=== PATIENT | female | born 1965 | race American Indian/Alaskan Native ===

== ENCOUNTER 2016-11-05 19:11 | Emergency (ER) | payer MEDICAID ==
[~2016-11-05] VITALS: Ht 167.6 cm; Wt 63.6 kg
[~2016-11-05 19:11] MED LIST: FLUO40CA8 PO; PROZAC; [UNRECOGNIZED DRUG - REMARK]
[2016-11-05] MEDS ORDERED: LIDOCAINE HCL 1%/EPI 1:200,000 30 ML VIAL MC ONE (21:00)
[2016-11-05] MEDS ORDERED: CEFTRIAXONE SODIUM 1 G/VIAL IM ONE (23:00)
[2016-11-05 23:48] VITALS: BP 136/87
== END 2016-11-05 23:55 | disposition home or self-care (01) ==
LOC: ER 20:40
DX: L02.414 Cutaneous abscess of left upper limb (principal); L02.413 Cutaneous abscess of right upper limb; F10.20 Alcohol dependence, uncomplicated; F17.210 Nicotine dependence, cigarettes, uncomplicated; Z79.899 Other long term (current) drug therapy; Z86.73 Personal history of transient ischemic attack (TIA), and cerebral infarction without residual deficits; Z98.51 Tubal ligation status
CPT/HCPCS: 10060; 96372; 99283; J0696; Z7610

== ENCOUNTER 2016-11-07 12:53 | Emergency (ER) | payer MEDICAID, OTHER ==
[~2016-11-07] VITALS: Ht 167.6 cm; Wt 66.0 kg
[2016-11-07 13:08] VITALS: BP 106/55
[2016-11-07] MEDS ORDERED: BACITRACIN ZINC OINT UDPKT TOP ONE (15:00)
== END 2016-11-07 16:35 | disposition home or self-care (01) ==
LOC: ER 16:29
DX: L02.414 Cutaneous abscess of left upper limb (principal); R03.0 Elevated blood-pressure reading, without diagnosis of hypertension; F11.20 Opioid dependence, uncomplicated; F20.9 Schizophrenia, unspecified; Z86.73 Personal history of transient ischemic attack (TIA), and cerebral infarction without residual deficits; Z98.890 Other specified postprocedural states
CPT/HCPCS: 99283; Z7610

== ENCOUNTER 2016-11-09 13:56 | Emergency (ER) | payer MEDICAID, OTHER ==
[~2016-11-09] VITALS: Ht 167.6 cm; Wt 66.0 kg
[2016-11-09 14:00] VITALS: BP 105/59
== END 2016-11-09 17:45 | disposition home or self-care (01) ==
LOC: ER 17:42
DX: Z48.01 Encounter for change or removal of surgical wound dressing (principal); F20.9 Schizophrenia, unspecified; F17.200 Nicotine dependence, unspecified, uncomplicated; Z98.51 Tubal ligation status; Z86.73 Personal history of transient ischemic attack (TIA), and cerebral infarction without residual deficits; Z98.890 Other specified postprocedural states
CPT/HCPCS: 99283

== ENCOUNTER 2017-02-03 14:36 | Emergency (ER) | payer OTHER ==
[~2017-02-03] VITALS: Ht 157.5 cm; Wt 80.0 kg
[2017-02-03] MEDS ORDERED: NALOXONE HCL 0.4 MG/ML 1ML VIAL IV PRN (15:00)
[2017-02-03 15:17] LABS: BASOPHILS % 0.7 % (0.0-2.0); EOSINOPHILS % 1.4 % (0.0-5.0); HEMATOCRIT. 32.7 % (36.0-48.0); HEMOGLOBIN. 10.3 g/dL (12.0-16.0); LYMPHOCYTES % 22.5 % (20.0-50.0); MEAN CORPUSCULAR HEMOGLOBIN 23.1 pg (28.0-32.0); MEAN CORPUSCULAR VOLUME 73.3 fL (81.0-99.0); MEAN PLATELET VOLUME 7.2 fl (7.4-10.4); MONOCYTES % 4.5 % (2.0-8.0); NEUTROPHILS % 70.9 % (40.0-76.0); PLATELET 285 x1000/uL (130-400); RED BLOOD CELL COUNT 4.46 mill/uL (4.2-5.4); RED CELL DISTRIBUTION WIDTH 22.2 % (11.6-14.6)
[2017-02-03 15:29] LABS: CARBON DIOXIDE 23 mEq/L (21-32); CHLORIDE 107 mEq/L (98-107); ETHANOL BLOOD 64 mg/dL
[2017-02-03 16:08] LABS: PLATELET ESTIMATE NORMAL
[2017-02-03 17:05] VITALS: BP 132/75
== END 2017-02-03 17:39 | disposition home or self-care (01) ==
LOC: ER 14:40
DX: R41.82 Altered mental status, unspecified (principal); F20.9 Schizophrenia, unspecified; Z86.73 Personal history of transient ischemic attack (TIA), and cerebral infarction without residual deficits
CPT/HCPCS: 36415; 80053; 85025; 96374; 99284; G0482; J2310

== ENCOUNTER 2017-06-14 21:16 | Emergency (ER) | payer OTHER ==
[~2017-06-14] VITALS: Ht 167.6 cm; Wt 59.0 kg
[2017-06-14] MEDS ORDERED: ACETAMINOPHEN 325MG TABLET PO ONE (23:15)
[2017-06-14 23:42] LABS: BASOPHILS % 0.7 % (0.0-2.0); EOSINOPHILS % 5.7 % (0.0-5.0); HEMATOCRIT. 36.4 % (36.0-48.0); HEMOGLOBIN. 12.1 g/dL (12.0-16.0); LYMPHOCYTES % 26.9 % (20.0-50.0); MEAN CORPUSCULAR HEMOGLOBIN 26.8 pg (28.0-32.0); MEAN CORPUSCULAR VOLUME 80.4 fL (81.0-99.0); MEAN PLATELET VOLUME 7.1 fl (7.4-10.4); MONOCYTES % 5.4 % (2.0-8.0); NEUTROPHILS % 61.3 % (40.0-76.0); PLATELET 303 x1000/uL (130-400); RED BLOOD CELL COUNT 4.52 mill/uL (4.2-5.4); RED CELL DISTRIBUTION WIDTH 18.6 % (11.6-14.6)
[2017-06-14 23:48] LABS: CHLORIDE 110 mEq/L (98-107)
[2017-06-14 23:57] LABS: CARBON DIOXIDE 27 mEq/L (21-32); ETHANOL BLOOD < 10 mg/dL
[2017-06-15 00:13] LABS: CLARITY URINE CLOUDY (CLEAR); COLOR URINE DARK YELLOW (YELLOW); KETONES URINE TRACE (NEGATIVE); LEUKOCYTE ESTERASE URINE 1+ (NEGATIVE); NITRITE URINE POSITIVE (NEGATIVE); OCCULT BLOOD URINE 2+ (NEGATIVE); PROTEIN URINE TRACE (NEGATIVE)
[2017-06-15 00:52] LABS: *AMPHETAMINES SCREEN URINE NEGATIVE (NEGATIVE); *BARBITURATES SCREEN URINE NEGATIVE (NEGATIVE); *BENZODIAZEPINES SCREEN URINE PRESUMTIVE POSITIVE (NEGATIVE); *COCAINE SCREEN URINE PRESUMTIVE POSITIVE (NEGATIVE); CANNABINOID URINE SCREEN PRESUMTIVE POSITIVE (NEGATIVE); METHADONE URINE SCREEN NEGATIVE (NEGATIVE); OPIATES URINE SCREEN NEGATIVE (NEGATIVE); PHENCYCLIDINE URINE SCREEN PRESUMTIVE POSITIVE (NEGATIVE)
[2017-06-15 01:20] LABS: HCG SCREEN NEGATIVE
[2017-06-15 03:25] VITALS: BP 141/70
== END 2017-06-15 05:18 | disposition home or self-care (01) ==
LOC: ER 21:40
DX: N39.0 Urinary tract infection, site not specified (principal); R31.29 Other microscopic hematuria; R53.1 Weakness; F10.20 Alcohol dependence, uncomplicated; F17.200 Nicotine dependence, unspecified, uncomplicated; I10 Essential (primary) hypertension; F14.10 Cocaine abuse, uncomplicated; F19.10 Other psychoactive substance abuse, uncomplicated; Z86.73 Personal history of transient ischemic attack (TIA), and cerebral infarction without residual deficits; Z98.890 Other specified postprocedural states; Y90.0 Blood alcohol level of less than 20 mg/100 ml
CPT/HCPCS: 36415; 80053; 80305; 81001; 84703; 85025; 99284; G0482; 81003

== ENCOUNTER 2017-07-04 19:15 | Emergency (ER) | payer OTHER ==
[~2017-07-04] VITALS: Ht 165.1 cm; Wt 64.0 kg
[2017-07-04] MEDS ORDERED: PREDNISONE 20MG TABLET PO ONE (23:00)
[2017-07-04] MEDS ORDERED: ALBUTEROL (0.083%) 2.5MG/3ML NEB HHN ONE (23:00)
[2017-07-05 02:35] VITALS: BP 124/72
== END 2017-07-05 02:39 | disposition home or self-care (01) ==
LOC: ER 19:15
DX: J40 Bronchitis, not specified as acute or chronic (principal); J98.01 Acute bronchospasm; I10 Essential (primary) hypertension; F20.9 Schizophrenia, unspecified; F10.20 Alcohol dependence, uncomplicated; F31.9 Bipolar disorder, unspecified; F17.200 Nicotine dependence, unspecified, uncomplicated; F14.10 Cocaine abuse, uncomplicated; Z86.73 Personal history of transient ischemic attack (TIA), and cerebral infarction without residual deficits
CPT/HCPCS: 71045; 94640; 99283; J7512; J7611; Z7610

== ENCOUNTER 2017-10-24 17:34 | Emergency (ER) | payer MEDICAID ==
[~2017-10-24] VITALS: Ht 162.6 cm; Wt 69.0 kg
[~2017-10-24 17:34] MED LIST changes: -PROZAC; -[UNRECOGNIZED DRUG - REMARK]
[2017-10-24] MEDS ORDERED: IBUPROFEN 600MG TABLET PO ONE (22:15)
[2017-10-24] MEDS ORDERED: TETANUS, DIPHTHERIA, PERTUSSIS VAC/PF 0.5ML (>7YR OLD) IM ONE (22:45)
[2017-10-24 23:25] VITALS: BP 135/85
== END 2017-10-24 23:25 | disposition home or self-care (01) ==
LOC: ER 17:48
DX: S60.511A Abrasion of right hand, initial encounter (principal); M25.551 Pain in right hip; E11.9 Type 2 diabetes mellitus without complications; I69.351 Hemiplegia and hemiparesis following cerebral infarction affecting right dominant side; I69.328 Other speech and language deficits following cerebral infarction; Z86.19 Personal history of other infectious and parasitic diseases; W01.0XXA Fall on same level from slipping, tripping and stumbling without subsequent striking against object, initial encounter; Y93.89 Activity, other specified; Y92.488 Other paved roadways as the place of occurrence of the external cause
CPT/HCPCS: 72170; 73130; 81025; 90471; 90715; 99284

== ENCOUNTER 2017-12-19 21:14 | Emergency (ER) | payer MEDICAID ==
[~2017-12-19] VITALS: Ht 165.1 cm; Wt 64.0 kg
[2017-12-20] MEDS ORDERED: ACETAMINOPHEN 325MG TABLET PO ONE (01:45)
[2017-12-20 04:49] VITALS: BP 125/75
== END 2017-12-20 04:55 | disposition home or self-care (01) ==
LOC: ER 21:26
DX: S82.491A Other fracture of shaft of right fibula, initial encounter for closed fracture (principal); I10 Essential (primary) hypertension; E11.9 Type 2 diabetes mellitus without complications; F20.9 Schizophrenia, unspecified; W18.30XA Fall on same level, unspecified, initial encounter; Y93.9 Activity, unspecified; Y92.9 Unspecified place or not applicable; Z83.3 Family history of diabetes mellitus; Z86.73 Personal history of transient ischemic attack (TIA), and cerebral infarction without residual deficits
CPT/HCPCS: 29515; 73610; 99284; Z7610

== ENCOUNTER 2018-07-26 16:53 | Emergency (ER) | payer MEDICAID ==
[~2018-07-26] VITALS: Ht 170.2 cm; Wt 91.0 kg
[2018-07-26 16:58] VITALS: BP 135/85
== END 2018-07-26 18:34 | disposition left against medical advice (07) ==
LOC: ER 16:53
DX: Z53.21 Procedure and treatment not carried out due to patient leaving prior to being seen by health care provider (principal)
CPT/HCPCS: 93005

== ENCOUNTER 2018-09-12 11:55 | Emergency (ER) | payer MEDICAID ==
[~2018-09-12] VITALS: Ht 170.2 cm; Wt 91.0 kg
[2018-09-12] MEDS ORDERED: IBUPROFEN 600MG TABLET PO ONE (20:00)
[2018-09-12 22:58] VITALS: BP 138/98
== END 2018-09-12 22:57 | disposition home or self-care (01) ==
LOC: ER 11:55
DX: S02.2XXA Fracture of nasal bones, initial encounter for closed fracture (principal); S82.291A Other fracture of shaft of right tibia, initial encounter for closed fracture; S00.83XA Contusion of other part of head, initial encounter; I69.351 Hemiplegia and hemiparesis following cerebral infarction affecting right dominant side; E11.9 Type 2 diabetes mellitus without complications; I10 Essential (primary) hypertension; F20.9 Schizophrenia, unspecified; F14.10 Cocaine abuse, uncomplicated; F12.10 Cannabis abuse, uncomplicated; F16.10 Hallucinogen abuse, uncomplicated; Z88.0 Allergy status to penicillin; Y04.0XXA Assault by unarmed brawl or fight, initial encounter; Y93.89 Activity, other specified; Y92.89 Other specified places as the place of occurrence of the external cause
CPT/HCPCS: 29515; 70150; 70486; 73562; 73610; 99284

== ENCOUNTER 2018-09-30 14:29 | Emergency (ER) | payer MEDICAID ==
[~2018-09-30] VITALS: Ht 162.6 cm; Wt 76.0 kg
[2018-09-30] MEDS ORDERED: SODIUM CHLORIDE 0.9% 1,000 ML IV ONE (15:32)
[2018-09-30 15:55] LABS: BASOPHILS % 1.3 % (0.0-2.0); EOSINOPHILS % 2.5 % (0.0-5.0); HEMATOCRIT. 31.9 % (36.0-48.0); HEMOGLOBIN. 10.7 g/dL (12.0-16.0); MEAN CORPUSCULAR HEMOGLOBIN 28.1 pg (28.0-32.0); MEAN CORPUSCULAR VOLUME 83.8 fL (81.0-99.0); MEAN PLATELET VOLUME 7.2 fl (7.4-10.4); MONOCYTES % 5.6 % (2.0-8.0); NEUTROPHILS % 73.6 % (40.0-76.0); PLATELET 365 x1000/uL (130-400); RED BLOOD CELL COUNT 3.81 mill/uL (4.2-5.4); RED CELL DISTRIBUTION WIDTH 15.5 % (11.6-14.6)
[2018-09-30 16:00] LABS: INR 1.1; PROTHROMBIN TIME 10.7 sec (9.1-11.1)
[2018-09-30 18:00] VITALS: BP 134/78
[2018-09-30 18:56] LABS: CLARITY URINE CLOUDY (CLEAR); COLOR URINE YELLOW (YELLOW); KETONES URINE NEGATIVE (NEGATIVE); LEUKOCYTE ESTERASE URINE 1+ (NEGATIVE); NITRITE URINE POSITIVE (NEGATIVE); OCCULT BLOOD URINE 2+ (NEGATIVE); PROTEIN URINE TRACE (NEGATIVE); SPECIFIC GRAVITY URINE 1.023 (1.005-1.030); UROBILINOGEN URINE 0.2 E.U./dL (0.2-1.0)
[2018-09-30 19:31] LABS: *BENZODIAZEPINES SCREEN URINE NEGATIVE (NEGATIVE)
[2018-09-30 19:32] LABS: *AMPHETAMINES SCREEN URINE PRESUMTIVE POSITIVE (NEGATIVE); *COCAINE SCREEN URINE PRESUMTIVE POSITIVE (NEGATIVE); CANNABINOID URINE SCREEN PRESUMTIVE POSITIVE (NEGATIVE); METHADONE URINE SCREEN NEGATIVE (NEGATIVE); OPIATES URINE SCREEN NEGATIVE (NEGATIVE); PHENCYCLIDINE URINE SCREEN PRESUMTIVE POSITIVE (NEGATIVE)
[2018-09-30 19:33] LABS: *BARBITURATES SCREEN URINE NEGATIVE (NEGATIVE)
== END 2018-09-30 21:01 | disposition home or self-care (01) ==
LOC: ER 16:10
DX: F12.10 Cannabis abuse, uncomplicated (principal); F14.10 Cocaine abuse, uncomplicated; F15.10 Other stimulant abuse, uncomplicated; F16.10 Hallucinogen abuse, uncomplicated; F11.10 Opioid abuse, uncomplicated; R41.82 Altered mental status, unspecified; F41.9 Anxiety disorder, unspecified; F20.9 Schizophrenia, unspecified; F31.9 Bipolar disorder, unspecified; Z88.0 Allergy status to penicillin; Z79.899 Other long term (current) drug therapy
CPT/HCPCS: 36415; 71045; 80305; 81003; 82962; 85025; 85610; 93005; 96360; 96361; 99284; J7030

== ENCOUNTER 2019-06-07 17:32 | Inpatient (IN) | payer MEDICAID ==
[~2019-06-07] VITALS: Ht 162.6 cm; Wt 89.4 kg
[2019-06-07] MEDS ORDERED: SODIUM CHLORIDE 0.9% 1,000 ML IV ONE (18:05)
[2019-06-07] MEDS ORDERED: MORPHINE SULFATE 4 MG/ML CPJ (NOT FOR IM USE) IV STA (18:05)
[2019-06-07] MEDS ORDERED: ONDANSETRON HCL 4MG/2ML INJ IV STA (18:05)
[2019-06-07 19:14] LABS: CHLORIDE 110 mEq/L (98-107)
[2019-06-07 19:15] LABS: BASOPHILS % 0.5 % (0.0-2.0); EOSINOPHILS % 0.6 % (0.0-5.0); HEMATOCRIT. 21.8 % (36.0-48.0); LYMPHOCYTES % 17.4 % (20.0-50.0); MEAN CORPUSCULAR HEMOGLOBIN 24.2 pg (28.0-32.0); MEAN CORPUSCULAR VOLUME 75.2 fL (81.0-99.0); MEAN PLATELET VOLUME 7.3 fl (7.4-10.4); MONOCYTES % 7.6 % (2.0-8.0); NEUTROPHILS % 73.9 % (40.0-76.0); PLATELET 290 x1000/uL (130-400); RED BLOOD CELL COUNT 2.89 mill/uL (4.2-5.4); RED CELL DISTRIBUTION WIDTH 19.3 % (11.6-14.6)
[2019-06-07 20:10] LABS: CLARITY URINE TURBID (CLEAR); COLOR URINE YELLOW (YELLOW); KETONES URINE TRACE (NEGATIVE); LEUKOCYTE ESTERASE URINE 2+ (NEGATIVE); NITRITE URINE POSITIVE (NEGATIVE); OCCULT BLOOD URINE 1+ (NEGATIVE); PH URINE 5.5 (4.5-8.0); PROTEIN URINE 1+ (NEGATIVE); SPECIFIC GRAVITY URINE 1.018 (1.005-1.030); UROBILINOGEN URINE 0.2 E.U./dL (0.2-1.0)
[2019-06-07] MEDS ORDERED: POTASSIUM CHLORIDE 20MEQ TABLET SR PO SCH (22:00)
[2019-06-07] MEDS ORDERED: CEFTRIAXONE 1 G PREMIX 50 ML IV SCH (22:00)
[2019-06-08] MEDS ORDERED: ONDANSETRON HCL 4MG/2ML INJ ONE (02:06)
[2019-06-08] MEDS ORDERED: CLONIDINE 0.1MG TABLET PO PRN (10:00)
[2019-06-08] MEDS ORDERED: MAGNESIUM/ALUMINUM HYDROXIDE/SIMETHICONE 30ML UDC PO PRN (10:00)
[2019-06-08] MEDS ORDERED: ACETAMINOPHEN 325MG TABLET PO PRN (10:00)
[2019-06-08] MEDS ORDERED: TRAZ-213 PO (10:58)
[2019-06-08] MEDS ORDERED: CYCL10TA7 MT (10:58)
[2019-06-08] MEDS ORDERED: IBUP-2029 MT (10:58)
[2019-06-08] MEDS ORDERED: DULO30CA52 PO (10:58)
[2019-06-08] MEDS ORDERED: FLUO40CA49 MT (10:58)
[2019-06-08] MEDS ORDERED: POTASSIUM CHLORIDE INJ 40 MEQ in DEXT 5% WATER 250 ML IV NR (11:00)
[2019-06-08 11:02] VITALS: BP 121/51
[2019-06-08 12:00] VITALS: BP 121/51
[2019-06-08] MEDS: PANTOPRAZOLE SODIUM 40 MG/VIAL IV SCH ×2 (12:08→21:55)
[2019-06-08] MEDS: DEXT 5%/0.45% NACL 1000ML 1,000 ML IV SCH (13:25)
[2019-06-08 16:00] VITALS: BP 96/53
[2019-06-08 20:00] VITALS: BP 99/54
[2019-06-08] MEDS: CEFTRIAXONE 1 G PREMIX 50 ML IV SCH (21:55)
[2019-06-09] VITALS: BP 104/69
[2019-06-09 01:22] LABS: HEMATOCRIT 25.5 % (36.0-48.0); HEMOGLOBIN 8.1 g/dL (12.0-16.0)
[2019-06-09 04:00] VITALS: BP 112/63
[2019-06-09] MEDS: DEXT 5%/0.45% NACL 1000ML 1,000 ML IV SCH ×2 (05:35→20:26)
[2019-06-09 08:00] VITALS: BP 107/69
[2019-06-09 08:21] LABS: CHLORIDE 114 mEq/L (98-107)
[2019-06-09 08:24] LABS: FOLIC ACID (FOLATE) SERUM 18.6 ng/mL (>5.38)
[2019-06-09 08:32] LABS: PHOSPHORUS 2.6 mg/dL (2.5-4.9)
[2019-06-09 08:33] LABS: LDL CHOLESTEROL 80 mg/dL (5-100); TOTAL IRON BINDING CAPACITY 487 ug/dL (250-450)
[2019-06-09 08:35] LABS: HDL CHOLESTEROL 38 mg/dL (40-59)
[2019-06-09] MEDS: FERROUS SULFATE 325MG TABLET PO SCH ×2 (08:54→12:53)
[2019-06-09] MEDS: PANTOPRAZOLE SODIUM 40 MG/VIAL IV SCH ×2 (09:02→22:42)
[2019-06-09] MEDS: MORPHINE SULFATE 2 MG/ML CPJ (NOT FOR IM USE) IV PRN ×2 (09:09→20:27)
[2019-06-09 09:38] LABS: BASOPHILS % 0.5 % (0.0-2.0); EOSINOPHILS % 6.1 % (0.0-5.0); HEMATOCRIT. 25.3 % (36.0-48.0); LYMPHOCYTES % 25.9 % (20.0-50.0); MEAN CORPUSCULAR HEMOGLOBIN 24.7 pg (28.0-32.0); MEAN CORPUSCULAR VOLUME 77.8 fL (81.0-99.0); MEAN PLATELET VOLUME 7.3 fl (7.4-10.4); MONOCYTES % 7.2 % (2.0-8.0); NEUTROPHILS % 60.3 % (40.0-76.0); PLATELET 249 x1000/uL (130-400); RED BLOOD CELL COUNT 3.25 mill/uL (4.2-5.4); RED CELL DISTRIBUTION WIDTH 19.8 % (11.6-14.6)
[2019-06-09 09:39] LABS: PARTIAL THROMBOPLASTIN TIME 28.2 sec (23.4-31.0); PROTHROMBIN TIME 9.9 sec (9.6-11.0)
[2019-06-09] MEDS ORDERED: FENTANYL CITRATE/PF 50MCG/ML 2ML VIAL ONE (10:23)
[2019-06-09] MEDS ORDERED: MIDAZOLAM HCL 5 MG/5 ML VIAL ONE (10:24)
[2019-06-09] MEDS ORDERED: FENTANYL CITRATE/PF 50MCG/ML 2ML VIAL IV ONE (10:44)
[2019-06-09] MEDS ORDERED: MIDAZOLAM HCL 5 MG/5 ML VIAL IV ONE (10:48)
[2019-06-09 12:00] VITALS: BP 116/69
[2019-06-09 13:35] LABS: HEPATITIS B SURFACE AB 14.1 mIU/mL
[2019-06-09 13:41] LABS: HEPATITIS B SURFACE ANTIGEN NEGATIVE
[2019-06-09 16:00] VITALS: BP 132/66
[2019-06-09] MEDS: CYCLOBENZAPRINE 10MG TABLET PO SCH (20:25)
[2019-06-09] MEDS: CEFTRIAXONE 1 G PREMIX 50 ML IV SCH (22:42)
[2019-06-09] MEDS ORDERED: ONDANSETRON HCL 4MG/2ML INJ IV PRN (23:30)
[2019-06-09] MEDS ORDERED: LACTULOSE 20G/30ML UDC PO PRN (23:30)
[2019-06-10] VITALS: BP 114/75
[2019-06-10 07:57] LABS: CHLORIDE 111 mEq/L (98-107)
[2019-06-10 07:58] LABS: BASOPHILS % 0.4 % (0.0-2.0); EOSINOPHILS % 7.8 % (0.0-5.0); HEMATOCRIT. 24.7 % (36.0-48.0); LYMPHOCYTES % 29.7 % (20.0-50.0); MEAN CORPUSCULAR HEMOGLOBIN 24.9 pg (28.0-32.0); MEAN CORPUSCULAR VOLUME 77.1 fL (81.0-99.0); MEAN PLATELET VOLUME 7.5 fl (7.4-10.4); MONOCYTES % 7.5 % (2.0-8.0); NEUTROPHILS % 54.6 % (40.0-76.0); PLATELET 213 x1000/uL (130-400)
[2019-06-10 08:00] VITALS: BP 125/78
[2019-06-10] MEDS: PANTOPRAZOLE SODIUM 40 MG/VIAL IV SCH ×2 (09:54→22:55)
[2019-06-10] MEDS: DULOXETINE HCL 30MG DR CAPSULE PO SCH (09:54)
[2019-06-10] MEDS: FLUOXETINE HCL 20MG CAPSULE PO SCH (09:54)
[2019-06-10] MEDS: FERROUS SULFATE 325MG TABLET PO SCH (09:55)
[2019-06-10] MEDS: DEXT 5%/0.45% NACL 1000ML 1,000 ML IV SCH (12:00)
[2019-06-10] MEDS ORDERED: LEVO500T2 MT (12:42)
[2019-06-10] MEDS ORDERED: FERR325T6 MT (12:42)
[2019-06-10] MEDS ORDERED: DOCU-138 MT (12:42)
[2019-06-10] MEDS ORDERED: SUCR1TAB MT (12:42)
[2019-06-10] MEDS ORDERED: OMEP20TA2 MT (12:42)
[2019-06-10] MEDS ORDERED: TRAM50TA3 MT (13:07)
[2019-06-10 14:10] LABS: HIV SCREEN 4G Non Reactive (Non Reactive)
[2019-06-10 18:07] VITALS: BP 112/75
[2019-06-10 20:00] VITALS: BP 135/77
[2019-06-10] MEDS: CYCLOBENZAPRINE 10MG TABLET PO SCH (22:55)
[2019-06-10] MEDS: CEFTRIAXONE 1 G PREMIX 50 ML IV SCH (23:15)
[2019-06-11] VITALS: BP 124/77
[2019-06-11 04:00] VITALS: BP 142/87
[2019-06-11] MEDS: DEXT 5%/0.45% NACL 1000ML 1,000 ML IV SCH (04:40)
[2019-06-11 08:00] VITALS: BP 131/83
[2019-06-11] MEDS: FLUOXETINE HCL 20MG CAPSULE PO SCH (08:49)
[2019-06-11] MEDS: PANTOPRAZOLE SODIUM 40 MG/VIAL IV SCH (08:49)
[2019-06-11] MEDS: FERROUS SULFATE 325MG TABLET PO SCH (08:49)
[2019-06-11] MEDS: DULOXETINE HCL 30MG DR CAPSULE PO SCH (08:49)
== END 2019-06-11 11:05 | disposition home or self-care (01) | DRG 241 ==
LOC: ER 17:32 → 5WST 22:15 → EDBEDREQTM 22:19 → EDBEDREQ 22:19 → ENRESERV 06-08 08:07
PROVIDERS: ADMIT Internal Medicine; ATTEND Internal Medicine
PROC: 30233N1 Transfusion of Nonautologous Red Blood Cells into Peripheral Vein, Percutaneous Approach (ICD-10-PCS; 2019-06-07)
PROC: 0DB68ZX Excision of Stomach, Via Natural or Artificial Opening Endoscopic, Diagnostic (ICD-10-PCS; principal; 2019-06-09)
DX: K29.71 Gastritis, unspecified, with bleeding (principal); N17.0 Acute kidney failure with tubular necrosis; F20.9 Schizophrenia, unspecified; D50.9 Iron deficiency anemia, unspecified; F11.10 Opioid abuse, uncomplicated; B19.20 Unspecified viral hepatitis C without hepatic coma; E87.6 Hypokalemia; K25.4 Chronic or unspecified gastric ulcer with hemorrhage; N39.0 Urinary tract infection, site not specified; F14.10 Cocaine abuse, uncomplicated; K26.4 Chronic or unspecified duodenal ulcer with hemorrhage; K44.9 Diaphragmatic hernia without obstruction or gangrene; I10 Essential (primary) hypertension; F41.9 Anxiety disorder, unspecified; F31.9 Bipolar disorder, unspecified; K29.81 Duodenitis with bleeding; Z86.73 Personal history of transient ischemic attack (TIA), and cerebral infarction without residual deficits; Z87.11 Personal history of peptic ulcer disease; Z90.710 Acquired absence of both cervix and uterus; Z83.3 Family history of diabetes mellitus; Z88.0 Allergy status to penicillin; Z79.899 Other long term (current) drug therapy; Z71.51 Drug abuse counseling and surveillance of drug abuser
CPT/HCPCS: 36415; 80048; 80061; 81003; 82270; 82607; 82728; 82746; 83540; 83550; 83735; 84100; 84443; 84484; 85014; 85018; 86850; 86900; 86920; 87077; 87186; 87389; 88305; 88313; 93005; 93970; 97161; 97166; 99285; C9113; J0696; J2250; J2270; J2405; J3010; J3480; J7030; J7040; J7060; P9016

== ENCOUNTER 2019-06-15 20:14 | Emergency (ER) | payer MEDICAID ==
[~2019-06-15] VITALS: Ht 162.6 cm; Wt 85.0 kg
[~2019-06-15 20:14] MED LIST changes: +CYCL10TA7 MT; +DOCU-138 MT; +DULO30CA52 PO; +FERR325T6 MT; +FLUO40CA49 MT; +LEVO500T2 MT; +OMEP20TA2 MT; +SUCR1TAB MT; +TRAM50TA3 MT; +TRAZ-213 PO
[2019-06-15 23:50] LABS: CHLORIDE 108 mEq/L (98-107)
[2019-06-15 23:51] LABS: PROTHROMBIN TIME 10.3 sec (9.6-11.0)
[2019-06-16 00:22] LABS: HEMATOCRIT. 32.2 % (36.0-48.0); HEMOGLOBIN. 10.4 g/dL (12.0-16.0); MEAN CORPUSCULAR VOLUME 77.2 fL (81.0-99.0); MEAN PLATELET VOLUME 8.1 fl (7.4-10.4); PLATELET 237 x1000/uL (130-400); RED BLOOD CELL COUNT 4.17 mill/uL (4.2-5.4); RED CELL DISTRIBUTION WIDTH 20.3 % (11.6-14.6)
[2019-06-16 00:23] LABS: BASOPHILS % 0.6 % (0.0-2.0); EOSINOPHILS % 3.9 % (0.0-5.0); LYMPHOCYTES % 22.5 % (20.0-50.0)
[2019-06-16] MEDS ORDERED: POTASSIUM CHLORIDE 20MEQ TABLET SR PO ONE (00:30)
[2019-06-16 03:31] LABS: CLARITY URINE CLEAR (CLEAR); COLOR URINE YELLOW (YELLOW); KETONES URINE NEGATIVE (NEGATIVE); LEUKOCYTE ESTERASE URINE NEGATIVE (NEGATIVE); NITRITE URINE NEGATIVE (NEGATIVE); OCCULT BLOOD URINE TRACE (NEGATIVE); PROTEIN URINE TRACE (NEGATIVE); SPECIFIC GRAVITY URINE 1.062 (1.005-1.030); UROBILINOGEN URINE 0.2 E.U./dL (0.2-1.0)
[2019-06-16] MEDS ORDERED: KETOROLAC 15MG/ML VIAL IV ONE (04:30)
[2019-06-16] MEDS ORDERED: CEFTRIAXONE SODIUM 250 MG/VIAL IM ONE (04:30)
[2019-06-16] MEDS ORDERED: AZITHROMYCIN 500 MG TABLET PO ONE (04:30)
[2019-06-16] MEDS ORDERED: IOHEXOL-300 100 ML BOTTLE ONE (04:41)
[2019-06-16 05:54] VITALS: BP 165/79
[2019-06-18 09:07] LABS: CHLAMYDIA TRACHOMATIS NAA Negative (Negative); NEISSERIA GONORRHOEAE NAA Negative (Negative)
== END 2019-06-16 06:23 | disposition home or self-care (01) ==
LOC: ER 20:14
DX: R10.84 Generalized abdominal pain (principal); E87.6 Hypokalemia; D50.9 Iron deficiency anemia, unspecified; F14.10 Cocaine abuse, uncomplicated; F11.10 Opioid abuse, uncomplicated; I10 Essential (primary) hypertension; K44.9 Diaphragmatic hernia without obstruction or gangrene; K42.9 Umbilical hernia without obstruction or gangrene; D35.02 Benign neoplasm of left adrenal gland; F41.9 Anxiety disorder, unspecified; F17.200 Nicotine dependence, unspecified, uncomplicated; Z86.73 Personal history of transient ischemic attack (TIA), and cerebral infarction without residual deficits; Z98.890 Other specified postprocedural states; Z88.0 Allergy status to penicillin; Z79.899 Other long term (current) drug therapy; Z90.49 Acquired absence of other specified parts of digestive tract
CPT/HCPCS: 36415; 71045; 74177; 80053; 81003; 84484; 85025; 85610; 87210; 87491; 87591; 93005; 96372; 96374; 99284; J0696; J1885; Q9967; Z7610

== ENCOUNTER 2019-12-31 20:50 | Emergency (ER) | payer MEDICAID ==
[~2019-12-31] VITALS: Ht 167.6 cm; Wt 84.8 kg
[~2019-12-31 20:50] MED LIST changes: -TRAZ-213 PO; +TRAZ-252 PO
[2020-01-01] MEDS ORDERED: ONDANSETRON HCL 4MG/2ML INJ IV STA (00:33)
[2020-01-01] MEDS ORDERED: KETOROLAC 30MG/ML VIAL IV STA (00:33)
[2020-01-01] MEDS ORDERED: SODIUM CHLORIDE 0.9% 1,000 ML IV ONE (00:33)
[2020-01-01] MEDS ORDERED: FAMOTIDINE 20MG/2ML VIAL IV STA (00:33)
[2020-01-01 01:23] VITALS: BP 141/89
[2020-01-01 01:38] LABS: HEMOGLOBIN. 11.4 g/dL (12.0-16.0); LYMPHOCYTES % 23.9 % (20.0-50.0); MEAN CORPUSCULAR HEMOGLOBIN 27.4 pg (28.0-32.0); MEAN PLATELET VOLUME 6.7 fl (7.4-10.4); MONOCYTES % 7.6 % (2.0-8.0); NEUTROPHILS % 62.2 % (40.0-76.0); PLATELET 317 x1000/uL (130-400); RED BLOOD CELL COUNT 4.15 mill/uL (4.2-5.4); RED CELL DISTRIBUTION WIDTH 18.2 % (11.6-14.6)
[2020-01-01 01:39] LABS: BASOPHILS % 0.5 % (0.0-2.0); EOSINOPHILS % 5.8 % (0.0-5.0)
[2020-01-01 01:45] LABS: CHLORIDE 111 mEq/L (98-107)
[2020-01-01 01:49] LABS: ETHANOL BLOOD < 10 mg/dL
[2020-01-01 02:47] LABS: CLARITY URINE CLEAR (CLEAR); COLOR URINE YELLOW (YELLOW); KETONES URINE NEGATIVE (NEGATIVE); LEUKOCYTE ESTERASE URINE TRACE (NEGATIVE); NITRITE URINE POSITIVE (NEGATIVE); OCCULT BLOOD URINE 2+ (NEGATIVE); PH URINE 5.5 (4.5-8.0); PROTEIN URINE NEGATIVE (NEGATIVE); SPECIFIC GRAVITY URINE 1.028 (1.005-1.030)
== END 2020-01-01 04:14 | disposition home or self-care (01) ==
LOC: ER 20:50
DX: N39.0 Urinary tract infection, site not specified (principal); I10 Essential (primary) hypertension; F20.9 Schizophrenia, unspecified; F41.9 Anxiety disorder, unspecified; F12.10 Cannabis abuse, uncomplicated; Z88.0 Allergy status to penicillin
CPT/HCPCS: 36415; 80053; 80320; 81003; 83690; 85025; 87077; 87086; 87186; 96361; 96374; 96375; 99284; J1885; J2405; J3490; J7030; G0480

== ENCOUNTER 2020-03-28 08:01 | Emergency (ER) | payer MEDICAID ==
[~2020-03-28] VITALS: Ht 157.5 cm; Wt 72.0 kg
[2020-03-28] MEDS ORDERED: ACETAMINOPHEN 325MG TABLET PO ONE (09:30)
[2020-03-28] MEDS ORDERED: ONDANSETRON HCL 4MG/2ML INJ IV STA (10:38)
[2020-03-28] MEDS ORDERED: SODIUM CHLORIDE 0.9% 1,000 ML IV ONE (10:38)
[2020-03-28 10:47] LABS: CLARITY URINE CLEAR (CLEAR); COLOR URINE YELLOW (YELLOW); KETONES URINE TRACE (NEGATIVE); LEUKOCYTE ESTERASE URINE 1+ (NEGATIVE); NITRITE URINE POSITIVE (NEGATIVE); OCCULT BLOOD URINE 1+ (NEGATIVE); PROTEIN URINE NEGATIVE (NEGATIVE); SPECIFIC GRAVITY URINE 1.028 (1.005-1.030)
[2020-03-28 12:05] LABS: EOSINOPHILS % 6.7 % (0.0-5.0); HEMATOCRIT. 35.1 % (36.0-48.0); HEMOGLOBIN. 11.4 g/dL (12.0-16.0); LYMPHOCYTES % 22.8 % (20.0-50.0); MEAN CORPUSCULAR HEMOGLOBIN 27.4 pg (28.0-32.0); MEAN CORPUSCULAR VOLUME 84.1 fL (81.0-99.0); MONOCYTES % 6.2 % (2.0-8.0); NEUTROPHILS % 63.3 % (40.0-76.0); RED BLOOD CELL COUNT 4.17 mill/uL (4.2-5.4); RED CELL DISTRIBUTION WIDTH 17.6 % (11.6-14.6)
[2020-03-28 12:10] LABS: CHLORIDE 110 mEq/L (98-107)
[2020-03-28 12:12] LABS: PROTHROMBIN TIME 10.6 sec (9.6-11.0)
[2020-03-28 13:06] VITALS: BP 128/87
[2020-03-28 13:10] LABS: PLATELET 251 x1000/uL (130-400)
[2020-04-02] MEDS ORDERED: FLUO10TA3 GT (00:38)
[2020-04-02] MEDS ORDERED: WARF1TAB46 PO (00:38)
[2020-04-02] MEDS ORDERED: TRAZ-252 PO (00:38)
== END 2020-03-28 13:07 | disposition home or self-care (01) ==
LOC: ER 08:01
DX: N30.90 Cystitis, unspecified without hematuria (principal); K44.9 Diaphragmatic hernia without obstruction or gangrene; K42.9 Umbilical hernia without obstruction or gangrene; K57.90 Diverticulosis of intestine, part unspecified, without perforation or abscess without bleeding; I69.351 Hemiplegia and hemiparesis following cerebral infarction affecting right dominant side; Z88.0 Allergy status to penicillin; Z79.899 Other long term (current) drug therapy; Z90.49 Acquired absence of other specified parts of digestive tract
CPT/HCPCS: 36415; 74176; 80053; 81003; 83690; 85025; 85610; 93005; 96361; 96374; 99285; J2405; J7030

== ENCOUNTER 2020-04-22 13:19 | Emergency (ER) | payer MEDICAID ==
[~2020-04-22] VITALS: Ht 167.6 cm; Wt 90.0 kg
[~2020-04-22 13:19] MED LIST changes: +FLUO10TA3 GT; +WARF1TAB46 PO
[2020-04-22] MEDS ORDERED: ONDANSETRON HCL 4MG/2ML INJ IV ONE (14:15)
[2020-04-22] MEDS ORDERED: KETOROLAC 15MG/ML VIAL IV ONE (14:15)
[2020-04-22 16:08] LABS: BASOPHILS % 0.4 % (0.0-2.0); HEMATOCRIT. 30.4 % (36.0-48.0); LYMPHOCYTES % 23.8 % (20.0-50.0); MEAN CORPUSCULAR HEMOGLOBIN 27.2 pg (28.0-32.0); MEAN CORPUSCULAR VOLUME 82.4 fL (81.0-99.0); MEAN PLATELET VOLUME 6.8 fl (7.4-10.4); MONOCYTES % 5.6 % (2.0-8.0); NEUTROPHILS % 65.2 % (40.0-76.0); PLATELET 336 x1000/uL (130-400); RED BLOOD CELL COUNT 3.68 mill/uL (4.2-5.4); RED CELL DISTRIBUTION WIDTH 17.8 % (11.6-14.6)
[2020-04-22 16:13] LABS: CHLORIDE 110 mEq/L (98-107)
[2020-04-22 16:15] LABS: ETHANOL BLOOD < 10 mg/dL
[2020-04-22] MEDS ORDERED: ONDANSETRON 4MG ODT PO NR (17:00)
[2020-04-22] MEDS ORDERED: IBUPROFEN 600MG TABLET PO NR (17:00)
[2020-04-22 18:20] VITALS: BP 127/83
== END 2020-04-22 18:33 | disposition home or self-care (01) ==
LOC: ER 13:27
DX: Z20.828 Contact with and (suspected) exposure to other viral communicable diseases (principal); J06.9 Acute upper respiratory infection, unspecified; M79.18 Myalgia, other site; K30 Functional dyspepsia; R11.0 Nausea; D64.9 Anemia, unspecified
CPT/HCPCS: 36415; 71045; 80053; 80320; 83880; 84484; 85025; 93005; 96374; 96375; 99285; J1885; J2405; G0480

== ENCOUNTER 2020-06-15 09:03 | Emergency (ER) | payer MEDICAID ==
[~2020-06-15] VITALS: Ht 167.6 cm; Wt 90.7 kg
[2020-06-15] MEDS ORDERED: ACETAMINOPHEN 325MG TABLET PO ONE (10:00)
[2020-06-15 10:30] VITALS: BP 120/78
== END 2020-06-15 09:52 | disposition home or self-care (01) ==
LOC: ER 09:03
DX: H00.015 Hordeolum externum left lower eyelid (principal); R05 Cough
CPT/HCPCS: 71045; 93005; 99283

== ENCOUNTER 2020-08-06 11:57 | Emergency (ER) | payer MEDICAID ==
[~2020-08-06] VITALS: Ht 154.9 cm; Wt 77.0 kg
[2020-08-06] MEDS ORDERED: ACETAMINOPHEN 325MG TABLET PO ONE (12:45)
[2020-08-06 13:15] VITALS: BP 118/81
== END 2020-08-06 13:15 | disposition home or self-care (01) ==
LOC: ER 12:32
DX: M19.09 Primary osteoarthritis, other specified site (principal); I10 Essential (primary) hypertension; I69.351 Hemiplegia and hemiparesis following cerebral infarction affecting right dominant side; I69.321 Dysphasia following cerebral infarction; E11.9 Type 2 diabetes mellitus without complications; F31.9 Bipolar disorder, unspecified; F20.9 Schizophrenia, unspecified; Z79.899 Other long term (current) drug therapy
CPT/HCPCS: 93005; 99283